=== PATIENT | female | born 1985 | race Asian ===

== ENCOUNTER 2019-09-27 07:15 | Inpatient (IN) | payer OTHER ==
[2019-09-27] MEDS ORDERED: CITRIC ACID/SODIUM CITRATE 30 ML UNIT-DOSE CUP PO ONE (07:30)
[2019-09-27] MEDS ORDERED: ELECTROLYTE-148 SOLN 1,000 ML IV SCH ×3 (07:30→10:30)
[2019-09-27 08:17] VITALS: BMI 37.6
--- NOTE | 2019-09-27 09:37 | HP ---
Past Medical History - Primary Care Physician PCP:: Jaylyn Stuart - Admission Chief Complaint: 34yo P1 @ 39.2wks for Repeat c/section, +FM, no VB, no LOF, some mild cramping History of Present Illness: 1. H/o C/section due to face presentation in [facility] - LST 2. distant relative 3. No Antepartum testing 4. GDMA 2 on 20 Units of Insullin HS 5. Recived Flu and TDap in History Source: Patient Limitations to Obtaining History: No Limitations - Past Medical History ...: 2 ...Para: 1 (s/secton, face presentation) ...Term: 1 ...: 0 ...Spon : 0 ...Induced : 0 ...Multiple Gestation: 0 ... Weeks Gestation by Dates: 39.2 ...EDC by Dates: 10/02/19 Endocrine: Yes: Diabetes Mellitus - Past Surgical History Past Surgical History: Yes: Hx Myomectomy: No Hx Transabdominal Cerclage: No - Smoking History Smoking history: Never smoked - Alcohol/Substance Use Hx Alcohol Use: No History of Substance Use: reports: None - Social History Usual Living Arrangement: Yes: With Spouse Occupation: house History of Recent Travel: No Home Medications - Allergies Allergies/Adverse Reactions: Allergies Allergy/AdvReac Type Severity Reaction Status Date / Time No Known Allergies Allergy Verified 09/27/19 07:46 - Home Medications Home Medications: Ambulatory Orders Insulin NPH Human Isophane [Humulin N] 20 units SQ HS 09/27/19 Mv-Mn/Iron/FA/Herbal/Digestive [ One Tablet] 1 tab PO DAILY 09/27/19 Review of Systems - Review of Systems Constitutional: reports: No Symptoms Eyes: reports: No Symptoms HENT: reports: No Symptoms Neck: reports: No Symptoms Cardiovascular: reports: No Symptoms Respiratory: reports: No Symptoms Gastrointestinal: reports: No Symptoms Genitourinary: reports: No Symptoms Breasts: reports: No Symptoms Reported Musculoskeletal: reports: No Symptoms Integumentary: reports: No Symptoms Neurological: reports: No Symptoms Endocrine: reports: No Symptoms Hematology/Lymphatic: reports: No Symptoms Psychiatric: reports: No Symptoms Pain Intensity: 1 Physical Exam - Maternity Vital Signs: Vital Signs Temperature 98.0 F 09/27/19 08:05 Pulse Rate 99 H 09/27/19 08:05 Respiratory Rate 17 09/27/19 08:05 Blood Pressure 130/75 09/27/19 08:05 O2 Sat by Pulse Oximetry (%) Constitutional: Yes: Well Nourished, No Distress, Calm Eyes: Yes: WNL, Conjunctiva Clear HENT: Yes: WNL, Atraumatic, Normocephalic Neck: Yes: WNL, Supple, Trachea Midline Cardiovascular: Yes: WNL, Regular Rate and Rhythm Lungs: Clear to auscultation Breast(s): Yes: WNL - Abdominal Exam/OB Fundal Height: 39 Number of Fetuses: Single Presentation: Vertex Contractions: No Monitor Mode: External Heart Rate (range): 140 Heart Rate Location: Midline Category: I Accelerations: Uniform Decelerations: None - Vaginal Exam/OB Vaginal Bleediing: No Dilatation (cm): declin Amniotic Membrane Status: Intact Presentation: Vertex/Position - Physical Exam Musculoskeletal: Yes: WNL Extremities: Yes: WNL Integumentary: Yes: WNL ...Motor Strength: WNL Psychiatric: Yes: WNL, Alert, Oriented Assessment/Plan 34yo P1 @ 39 wks with prior c/section She can not tolerate vaginal exams for Elective c/section all risks, benefits, alternatives discussed patient consented Anesthesia and neonatology aware NPO, Labs FHR Category 1
[2019-09-27] MEDS ORDERED: OXYTOCIN 20 UNITS in 0.9% NS 20 UNIT/1,000 ML INFUS.BAG IV ONE ×2 (09:58→11:17)
[2019-09-27] MEDS ORDERED: morphine SULFATE/PF 0.5 MG/ML (2cc Syringe - QUVA) ONE (10:16)
[2019-09-27] MEDS ORDERED: BENZOCAINE 28 GM HEMORRHOIDAL OINTMENT PR PRN (10:23)
[2019-09-27] MEDS ORDERED: diphenhydrAMINE HCL 25 MG CAPSULE (FP) PO PRN (10:23)
[2019-09-27] MEDS ORDERED: WITCH HAZEL 50% (TUCKS) 40 PAD/JAR PAD TP PRN (10:23)
[2019-09-27] MEDS ORDERED: IBUPROFEN 800 MG/8 ML IJ IVPB PRN (10:23)
[2019-09-27] MEDS ORDERED: METHYLERGONOVINE MALEATE 0.2 MG/1 ML AMP IM PRN (10:23)
[2019-09-27] MEDS ORDERED: BENZOCAINE 20% 57 GM BOTTLE TP PRN (10:23)
--- NOTE | 2019-09-27 10:23 | OP ---
Operative Note - Note: Operative Date: 09/27/19 Pre-Operative Diagnosis: 34yo P1 @ 39.2wks prior c/section for Repeat Operation: Repeat LST c/section Findings: ANGEL LUIS window Omental anterior abdominal wall adhesions Post-Operative Diagnosis: Same as Pre-op Surgeon: Jaylyn Stuart [employer] Instructor: Ryan Azar Anesthesiologist/CHANGE MANAGEMENT SPECIALIST: Nitin Amaya Anesthesia: Spinal Specimens Removed: Viable male APGARs 8/9. Full term Placenta Estimated Blood Loss (mls): 500 Drains, Volume Out (mls): 100 Fluid Volume Replaced (mls): 1,500 Operative Report Dictated: Yes
--- NOTE | 2019-09-27 10:24 | PN ---
Delivery - Delivery Section: Repeat, Low Flap Transverse Type of Anesthesia: Spinal Episiotomy/Laceration: None EBL (cc): 500 Delivery, Single - Stages of Labor Date of Delivery: 09/27/19 Time of Delivery: 10:43 Date Placenta Delivered: 09/27/19 Time Placenta Delivered: :44 Placenta: Yes: Expressed - Condition of Wire Wheeler/Ginner Present: Yes Name: Clem Hill Gender: Male Weight: 7 lb Position: Right, OT - 1 Minute Total Score: 8 5 Minutes Total Score: 9 - [place] Feeding Plan Initial Plan: Exclusive throughout hospitalization Benefits of Exclusively reinforced: Yes Remarks - Remarks Remarks: Viable Male, APGARS 8/9 Delivered without difficulty - and placenta Uterus closed in 2 layers Peretoneum and muscle reapproximated Fascia closed with 0-Vycril SQ space reapproximated Skin closed
[2019-09-27] MEDS: OXYTOCIN 20 UNITS in 0.9% NS 20 UNIT/1,000 ML INFUS.BAG IV SCH ×3 (11:30→21:41)
[2019-09-27] MEDS ORDERED: ONDANSETRON 4 MG/2 ML VIAL IVPUSH PRN (11:33)
[2019-09-27] MEDS: DEXTROSE 5%-LACTATED RINGERS 1,000 ML IV SCH (12:07)
[2019-09-27] MEDS: CEFAZOLIN 1 GM/D5W 1 GM/50 ML BAG IVPB SCH (17:45)
--- NOTE | 2019-09-28 00:21 | OP ---
DATE OF OPERATION: 09/27/2019 PREOPERATIVE DIAGNOSIS: A 34-year-old para 1 at 39 and 2 week with prior section for repeat section. OPERATION: Repeat lower segment transverse section. FINDINGS: Lower uterine segment window, omental anterior abdominal wall adhesions. POSTOPERATIVE DIAGNOSIS: A 34-year-old para 1 at 39 and 2 week with prior section for repeat section. SURGEON: Maribel Lim MD. PLANNING AND ANALYSIS MANAGER: Ryan Azar MD. ANESTHESIOLOGIST: Nitin Amaya MD. ANESTHESIA: Spinal. DESCRIPTION OF OPERATIVE PROCEDURE: After assuring informed consent, patient was brought to the operating room where spinal anesthesia was administered. Abdomen was prepped and draped in sterile fashion. Pfannenstiel skin incision was created with the scalpel, carried down to the level of the fascia with Bovie cautery. Fascial incision was extended bilaterally with Bovie cautery. Fascia was dissected off the rectus abdominis muscle superiorly and inferiorly with Bovie cautery with good visualization of underlying tissues. Rectus abdominis muscle was split in the midline and peritoneum was identified, tented, and entered with Metzenbaum scissors with good visualization of underlying structures. Peritoneum was retracted. Bilateral gutters were packed with lap sponges. Vesicouterine peritoneum was dissected off the anterior uterine wall with Metzenbaum scissors and retracted with Deyanira retractor. Uterine incision was created with scalpel. Very thin lower uterine segment was encountered. Uterine incision was extended bilaterally with bandage scissors. Infant's head in ROT position was floating and was delivered without any difficulty as well as the rest of 's body. The cord was clamped and cut. Infant was handed to the waiting community planner. Apgars given were 8 at one minute and 9 at five minutes. Subsequently placenta was expressed. The uterus was cleared of clots and debris. Cervix was opened with ring forceps. Uterine incision was repaired with 0 Biosyn with running, locking suture, and subsequently 2nd layer of 0 Biosyn was created imbricating the 1st layer. Abdomen was copiously irrigated and peritoneum was repaired with 0 Biosyn. Muscle was reapproximated in the midline. Fascia was repaired with 0 Vicryl suture. The subcutaneous tissue was reapproximated, and skin was closed with 4-0 Biosyn V-Loc suture. Excellent hemostasis was noted throughout. All sponges were removed and counted twice, and count was correct, as well as instrument count was correct twice. Estimated blood loss was 500 mL. Patient put out 100 mL of urine and received 1500 mL of IV fluids. Patient was brought to the recovery room in stable condition. MARIBEL LIM M.D. [id number]
[2019-09-28] MEDS: CEFAZOLIN 1 GM/D5W 1 GM/50 ML BAG IVPB SCH (02:09)
[2019-09-28] MEDS: oxyCODONE HCL 5 MG TABLET PO PRN ×3 (05:42→20:56)
[2019-09-28] MEDS: SIMETHICONE 80 MG TAB.CHEW (FP) PO PRN ×3 (05:42→20:55)
[2019-09-28] MEDS: IBUPROFEN 600 MG TABLET (FP) PO PRN ×3 (05:42→20:55)
[2019-09-28] MEDS: DEXTROSE 5%-LACTATED RINGERS 1,000 ML IV SCH ×2 (06:34→20:17)
[2019-09-28 08:38] LABS: BASO % 0.6 % (0-2.0); EOS % 0.9 % (0-4.5); HEMATOCRIT 34.7 % (32.4-45.2); HEMOGLOBIN 11.4 GM/dL (10.7-15.3); LYMPH % 20.7 % (8-40); MCH 26.2 pg (25.7-33.7); MCHC 32.9 g/dl (32.0-36.0); MEAN CELL VOLUME 79.8 fl (80-96); MEAN PLT VOLUME 8.4 fl (7.5-11.1); MONO % 5.8 % (3.8-10.2); PLATELET COUNT 248 K/MM3 (134-434); RBC 4.35 M/mm3 (3.60-5.2); RDW 15.1 % (11.6-15.6); WHITE BLOOD COUNT 11.7 K/mm3 (4.0-10.0)
[2019-09-28] MEDS: ENOXAPARIN NA (PORCINE) 40 MG/0.4 ML DISP.SYRIN SQ SCH (09:08)
[2019-09-28] MEDS ORDERED: BISACODYL 10 MG SUPP.RECT RC PRN (10:24)
--- NOTE | 2019-09-28 14:04 | PN ---
Progress Note (short form) - Note Progress Note: Anesthesia/pain Pt seen and examined S:Alert and awake O: CBC, BMP 09/28/19 08:00 Vital Signs Temperature 98.1 F 09/28/19 07:20 Pulse Rate 92 H 09/28/19 07:20 Respiratory Rate 18 09/28/19 11:00 Blood Pressure 110/68 09/28/19 07:20 O2 Sat by Pulse Oximetry (%) 100 09/27/19 12:30 A/P: s/p c section Comfortable Continue current care Bruno Steward MD
--- NOTE | 2019-09-28 16:24 | PN ---
Post Progress Note - Subjective Subjective: Patient without acute complaints. Reports tolerating oral intake without nausea or vomiting. Ambulating without dizziness. Denies fevers or chills. Pain well controlled with oral pain medication. Pumping/breast feeding without issue. Passing flatus, no BM. Post Day: 1 Type of Delivery: Repeat C/S Vital Signs: Vital Signs Temperature 98.1 F 09/28/19 07:20 Pulse Rate 92 H 09/28/19 07:20 Respiratory Rate 18 09/28/19 11:00 Blood Pressure 110/68 09/28/19 07:20 O2 Sat by Pulse Oximetry (%) 100 09/27/19 12:30 Breast Exam: Yes: Soft Uterus: Yes: Fundus Firm, Fundus below umbilicus, Non-tender Incision: Yes: Dressing dry and intact Abdomen/GI: Yes: Abdomen soft, Tolerating PO Lochia: Yes: Rubra Lochia, amount: Small Extremities: Yes: Calves non-tender Perineum: Yes: Intact Activity: Ambulating - Labs Labs: CBC WBC 11.7 K/mm3 (4.0-10.0) H 09/28/19 08:00 RBC 4.35 M/mm3 (3.60-5.2) 09/28/19 08:00 Hgb 11.4 GM/dL (10.7-15.3) 09/28/19 08:00 Hct 34.7 % (32.4-45.2) 09/28/19 08:00 MCV 79.8 fl (80-96) L 09/28/19 08:00 MCH 26.2 pg (25.7-33.7) 09/28/19 08:00 MCHC 32.9 g/dl (32.0-36.0) 09/28/19 08:00 RDW 15.1 % (11.6-15.6) 09/28/19 08:00 Plt Count 248 K/MM3 (134-434) 09/28/19 08:00 MPV 8.4 fl (7.5-11.1) 09/28/19 08:00 Absolute Neuts (auto) 8.4 K/mm3 (1.5-8.0) H 09/28/19 08:00 Neutrophils % 72.0 % (42.8-82.8) 09/28/19 08:00 Lymphocytes % 20.7 % (8-40) D 09/28/19 08:00 Monocytes % 5.8 % (3.8-10.2) 09/28/19 08:00 Eosinophils % 0.9 % (0-4.5) D 09/28/19 08:00 Basophils % 0.6 % (0-2.0) 09/28/19 08:00 Nucleated RBC % 0 % (0-0) 09/28/19 08:00 Assessment/Plan POD#1 s/p repeat LTC/S doing well, stable, afebrile. Asymptomatic for anemia. Post op care reviewed. Continue routine care. Ambulation encouraged Advance diet as tolerated.
[2019-09-29] MEDS: oxyCODONE HCL 5 MG TABLET PO PRN ×6 (00:54→21:54)
[2019-09-29] MEDS: SIMETHICONE 80 MG TAB.CHEW (FP) PO PRN ×6 (00:54→21:55)
[2019-09-29] MEDS: IBUPROFEN 600 MG TABLET (FP) PO PRN ×6 (00:55→21:54)
--- NOTE | 2019-09-29 08:24 | PN ---
Post Progress Note - Subjective Subjective: Patient without acute complaints. Reports tolerating oral intake without nausea or vomiting. Ambulating without dizziness. Denies fevers or chills. Pain well controlled with oral pain medication. without difficulty. Passing flatus. Post Day: 2 Type of Delivery: Repeat C/S Vital Signs: Vital Signs Temperature 98.4 F 09/28/19 22:00 Pulse Rate 116 H 09/28/19 22:00 Respiratory Rate 18 09/28/19 22:00 Blood Pressure 134/66 09/28/19 22:00 O2 Sat by Pulse Oximetry (%) 100 09/27/19 12:30 Breast Exam: Yes: Soft Uterus: Yes: Fundus Firm, Fundus below umbilicus Abdomen/GI: Yes: Abdomen soft, Abdominal Distention (mild soft), Tender ( incisional ), Passing flatus, Tolerating PO Lochia: Yes: Rubra Lochia, amount: Small Extremities: Yes: Calves non-tender, Edema (trace) Activity: Ambulating - Labs Labs: CBC WBC 11.7 K/mm3 (4.0-10.0) H 09/28/19 08:00 RBC 4.35 M/mm3 (3.60-5.2) 09/28/19 08:00 Hgb 11.4 GM/dL (10.7-15.3) 09/28/19 08:00 Hct 34.7 % (32.4-45.2) 09/28/19 08:00 MCV 79.8 fl (80-96) L 09/28/19 08:00 MCH 26.2 pg (25.7-33.7) 09/28/19 08:00 MCHC 32.9 g/dl (32.0-36.0) 09/28/19 08:00 RDW 15.1 % (11.6-15.6) 09/28/19 08:00 Plt Count 248 K/MM3 (134-434) 09/28/19 08:00 MPV 8.4 fl (7.5-11.1) 09/28/19 08:00 Absolute Neuts (auto) 8.4 K/mm3 (1.5-8.0) H 09/28/19 08:00 Neutrophils % 72.0 % (42.8-82.8) 09/28/19 08:00 Lymphocytes % 20.7 % (8-40) D 09/28/19 08:00 Monocytes % 5.8 % (3.8-10.2) 09/28/19 08:00 Eosinophils % 0.9 % (0-4.5) D 09/28/19 08:00 Basophils % 0.6 % (0-2.0) 09/28/19 08:00 Nucleated RBC % 0 % (0-0) 09/28/19 08:00 Assessment/Plan 34 yo POD #2 s/p repeat CD, afebrile, vital signs stable, doing well 1. Continue routine postoperative care. 2. Encourage ambulation and incentive spirometer use 3. Continue oral pain medication 4. Anticipate discharge home postoperative day #3 or #4
[2019-09-29] MEDS: ENOXAPARIN NA (PORCINE) 40 MG/0.4 ML DISP.SYRIN SQ SCH (09:30)
[2019-09-29 21:38] VITALS: PULSE 80
[2019-09-29] MEDS ORDERED: SENNOSIDES/DOCUSATE COMBO (SENNA PLUS) TABLET (UD) PO PRN (22:00)
[2019-09-30] MEDS: oxyCODONE HCL 5 MG TABLET PO PRN ×3 (01:35→10:04)
[2019-09-30] MEDS: IBUPROFEN 600 MG TABLET (FP) PO PRN ×4 (01:35→15:42)
[2019-09-30] MEDS: SIMETHICONE 80 MG TAB.CHEW (FP) PO PRN ×3 (05:42→15:42)
--- NOTE | 2019-09-30 08:16 | PN ---
Post Progress Note - Subjective Subjective: Patient without acute complaints. Reports tolerating oral intake without nausea or vomiting. Ambulating without dizziness. Denies fevers or chills. Pain well controlled with oral pain medication. without difficulty. Passing flatus. Post Day: 3 Type of Delivery: Repeat C/S Vital Signs: Vital Signs Temperature 98.2 F 09/29/19 21:37 Pulse Rate 80 09/29/19 21:37 Respiratory Rate 20 09/29/19 21:37 Blood Pressure 107/52 L 09/29/19 21:37 O2 Sat by Pulse Oximetry (%) 100 09/27/19 12:30 Breast Exam: Yes: Soft Uterus: Yes: Fundus Firm, Fundus below umbilicus Incision: Yes: Sutures intact. No: Redness, Oozing Abdomen/GI: Yes: Abdomen soft, Abdominal Distention (+ soft), Tender (incisional ), Passing flatus, Tolerating PO Lochia: Yes: Rubra Lochia, amount: Small Extremities: Yes: Calves non-tender, Edema (+1) Activity: Ambulating - Labs Labs: CBC WBC 11.7 K/mm3 (4.0-10.0) H 09/28/19 08:00 RBC 4.35 M/mm3 (3.60-5.2) 09/28/19 08:00 Hgb 11.4 GM/dL (10.7-15.3) 09/28/19 08:00 Hct 34.7 % (32.4-45.2) 09/28/19 08:00 MCV 79.8 fl (80-96) L 09/28/19 08:00 MCH 26.2 pg (25.7-33.7) 09/28/19 08:00 MCHC 32.9 g/dl (32.0-36.0) 09/28/19 08:00 RDW 15.1 % (11.6-15.6) 09/28/19 08:00 Plt Count 248 K/MM3 (134-434) 09/28/19 08:00 MPV 8.4 fl (7.5-11.1) 09/28/19 08:00 Absolute Neuts (auto) 8.4 K/mm3 (1.5-8.0) H 09/28/19 08:00 Neutrophils % 72.0 % (42.8-82.8) 09/28/19 08:00 Lymphocytes % 20.7 % (8-40) D 09/28/19 08:00 Monocytes % 5.8 % (3.8-10.2) 09/28/19 08:00 Eosinophils % 0.9 % (0-4.5) D 09/28/19 08:00 Basophils % 0.6 % (0-2.0) 09/28/19 08:00 Nucleated RBC % 0 % (0-0) 09/28/19 08:00 Assessment/Plan 34 yo POD #3 s/p repeat CD, afebrile, vital signs stable, doing well, desires DC today 1. Patient stable for discharge home today. 2. Patient encouraged to contact MD for: - Severe pain not controlled by oral pain medication - Fevers or chills - Nausea or vomiting, intolerance of oral intake - Incision redness, tenderness or discharge 3. Patient to follow up in office in 1-2 weeks for incision check, 4-6 weeks for visit
[2019-09-30 08:39] LABS: BASO % 0.7 % (0-2.0); EOS % 2.1 % (0-4.5); HEMATOCRIT 37.2 % (32.4-45.2); HEMOGLOBIN 12.2 GM/dL (10.7-15.3); LYMPH % 24.9 % (8-40); MCH 26.4 pg (25.7-33.7); MCHC 32.6 g/dl (32.0-36.0); MEAN CELL VOLUME 80.9 fl (80-96); MEAN PLT VOLUME 8.3 fl (7.5-11.1); MONO % 6.6 % (3.8-10.2); NEUT % 65.7 % (42.8-82.8); PLATELET COUNT 340 K/MM3 (134-434); RDW 15.1 % (11.6-15.6); WHITE BLOOD COUNT 9.7 K/mm3 (4.0-10.0)
[2019-09-30] MEDS: ENOXAPARIN NA (PORCINE) 40 MG/0.4 ML DISP.SYRIN SQ SCH (09:36)
[2019-09-30 10:52] VITALS: BP 123/82; TEMP 97.8
--- NOTE | 2019-09-30 11:16 | PATH ---
Surgical Pathology Report Patient Name: JEFFRY GUERRIER Med. Rec. #: [id number] /Age/Gender: 1985 (Age: 34) / F Account: [id number] Location: [facility] OBS/SUPERVISOR HEAT TREATING Taken: 09/27/2019 Received: 09/28/2019 Reported: 09/30/2019 Physicians: Jaylyn Stuart M.D. Specimen(s) Received PLACENTA Clinical History , term Final Diagnosis PLACENTA, DELIVERY: FOCALLY DISRUPTED THIRD TRIMESTER PLACENTA WITH INTERVILLOUS FIBRIN DEPOSITION, THREE VESSEL UMBILICAL CORD WITH FOCAL EOSINOPHILIC VASCULITIS, AND UNREMARKABLE PLACENTAL MEMBRANES. Electronically Signed Kory Ortiz M.D. Gross Description The specimen is received fresh labeled placenta and is a 524 gram, 19.5 x 15.0 x 2.8 cm. placenta with attached membranes and umbilical cord. The attached membranes are wheeler, translucent with focal opacities and insert marginally. The umbilical cord measures 19.5 cm. in length and averages 1 cm. in diameter. The cord inserts centrally. No true knots or strictures are identified. Cut surface of the umbilical cord reveals 3 vessels. The surface is ray-blue with minimal fibrin deposition and appropriate caliber vessels. The maternal surface is red-brown with focal defects. Sectioning reveals red-brown, spongy parenchyma. No lesions are identified. Industrial Refrigeration Mechanic sections are submitted in three cassettes as follows: 1- membrane rolls and umbilical cord; 2-3- full thickness sections of placenta. /09/29/2019 [facility]09/29/2019
== END 2019-09-30 18:10 | disposition home or self-care (01) | DRG 540 ==
LOC: JLDR 07:15 → J3W 13:15
PROVIDERS: ADMIT Obstetrics & Gynecology; ATTEND Obstetrics & Gynecology
PROC: 10D00Z1 Extraction of Products of Conception, Low, Open Approach (ICD-10-PCS; principal; 2019-09-27)
DX: O34.211 Maternal care for low transverse scar from previous cesarean delivery (principal); N85.8 Other specified noninflammatory disorders of uterus; O24.429 Gestational diabetes mellitus in childbirth, unspecified control; O99.02 Anemia complicating childbirth; Z3A.39 39 weeks gestation of pregnancy; Z37.0 Single live birth
CPT/HCPCS: 36415; 36600; 82803; 82962; 85025; 86850; 86900; 86901; 88307-TC